=== PATIENT | male | born 1940 | race Caucasian/White ===

== ENCOUNTER → 2016-06-24 | Outpatient (CLI) | payer MEDICARE, OTHER ==
[2016-06-24 12:38] LABS: ASPARTATE AMINO TRANSFERASE 26 U/L (15-37); BLOOD UREA NITROGEN 16 mg/dL (7-18)
== END | disposition home or self-care (01) ==
LOC: LAB 08:46
PROVIDERS: ATTEND Internal Medicine Cardiovascular Disease
DX: E78.2 Mixed hyperlipidemia (principal)
CPT/HCPCS: 36415; 80053; 80061

== ENCOUNTER 2017-11-01 12:50 | Day surgery (SDC) | payer MEDICARE, OTHER ==
[~2017-11-01] VITALS: Ht 167.6 cm; Wt 77.3 kg
[~2017-11-01 12:50] MED LIST: ASPI-621 PO; LEVO125T5 PO; LIPITOR PO
[2017-11-01 13:12] VITALS: BP 114/76
[2017-11-01] MEDS ORDERED: LACTATED RINGERS 1,000 ML IV SCH (13:16)
[2017-11-01] MEDS ORDERED: FENTANYL PF 250 MCG/5ML ONE (14:45)
[2017-11-01] MEDS ORDERED: BUPIVACAINE/PF-EPI 0.5% 1:200K ONE (14:51)
[2017-11-01] MEDS ORDERED: PHENYLEPHRINE 10 MG/ML ONE (14:57)
[2017-11-01] MEDS ORDERED: ONDANSETRON 2MG/ML, 2ML IV PRN (16:00)
[2017-11-01] MEDS ORDERED: ONDANSETRON ODT 8 MG PO PRN (16:00)
[2017-11-01] MEDS ORDERED: OXYcodone 5 MG/5 ML ORAL.SOL UDC PO PRN (16:00)
[2017-11-01] MEDS ORDERED: PROMETHAZINE 25 MG/ML, 1ML IV PRN (16:00)
[2017-11-01] MEDS ORDERED: PROMETHAZINE 25 MG SUPP PR PRN (16:00)
[2017-11-01] MEDS ORDERED: ACETAMINOPHEN 325 MG TABLET PO PRN (16:00)
[2017-11-01] MEDS ORDERED: MEPERIDINE/PF 25MG/0.5ML IVPush PRN (16:00)
[2017-11-01] MEDS ORDERED: MORPHINE SULFATE 4 MG/ML, 1ML IVPush PRN (16:00)
[2017-11-01] MEDS ORDERED: SUCCINYLCHOLINE 20 MG/ML, 10ML ONE (16:16)
[2017-11-01] MEDS ORDERED: NEOSTIGMINE 1 MG/ML, 10ML ONE (16:16)
[2017-11-01] MEDS ORDERED: CEFAZOLIN 1,000 MG ONE (16:16)
[2017-11-01] MEDS ORDERED: ONDANSETRON 2MG/ML, 2ML ONE (16:16)
[2017-11-01] MEDS ORDERED: PROPOFOL 10 MG/ML, 20ML ONE (16:16)
[2017-11-01] MEDS ORDERED: GLYCOPYRROLATE 0.2MG/1ML, 5ML ONE (16:16)
[2017-11-01] MEDS ORDERED: DEXAMETHASONE 4 MG/ML, 1ML ONE (16:16)
[2017-11-01] MEDS ORDERED: ROCURONIUM 10MG/ML,5ML ONE (16:16)
[2017-11-01] MEDS ORDERED: ACETAMINOPHEN 650 MG/20.3 ML UDC ONE (16:27)
[2017-11-01] MEDS ORDERED: FENTANYL PF 100 MCG/2ML ONE (16:27)
[2017-11-01] MEDS ORDERED: OXYcodone 5 MG/5 ML ORAL.SOL UDC ONE (16:27)
[2017-11-01] MEDS: FENTANYL PF 100 MCG/2ML IV PRN ×2 (16:29→16:43)
== END 2017-11-01 18:40 | disposition home or self-care (01) ==
LOC: OUT 12:50
PROVIDERS: ATTEND Surgery
DX: K43.0 Incisional hernia with obstruction, without gangrene (principal); I10 Essential (primary) hypertension; E11.9 Type 2 diabetes mellitus without complications; E03.9 Hypothyroidism, unspecified; I25.10 Atherosclerotic heart disease of native coronary artery without angina pectoris; E78.00 Pure hypercholesterolemia, unspecified; Z79.82 Long term (current) use of aspirin; Z87.39 Personal history of other diseases of the musculoskeletal system and connective tissue; Z98.890 Other specified postprocedural states
CPT/HCPCS: 49655; 93005; C1781; J0330; J0690; J1100; J2405; J2704; J2710; J3010; J3490; J2370

== ENCOUNTER → 2017-11-25 | Outpatient (CLI) | payer MEDICARE, OTHER | END | disposition home or self-care (01) | LOC: CFH 11:34 | PROVIDERS: ATTEND Internal Medicine Cardiovascular Disease | DX: I25.10 Atherosclerotic heart disease of native coronary artery without angina pectoris (principal); I71.9 Aortic aneurysm of unspecified site, without rupture | CPT/HCPCS: 78452; 93017; A9502 ==

== ENCOUNTER → 2018-03-27 | Outpatient (CLI) | payer MEDICARE, OTHER ==
[~2018-03-27] MED LIST changes: -ASPI-621 PO; +ASPI81TA45 PO
[2018-03-27 12:45] LABS: ALANINE AMINOTRANSFERASE 38 U/L (12-78); ALBUMIN 3.5 g/dL (3.4-5.0); ANION GAP 4 mmol/L (5-15); CALCIUM 8.6 mg/dL (8.5-10.1); CHLORIDE 106 mmol/L (98-107); CREATININE 0.99 mg/dL (0.7-1.3)
[2018-03-27 12:47] LABS: ALKALINE PHOSPHATASE 76 U/L (45-117); BILIRUBIN,TOTAL 0.4 mg/dL (0.2-1.0); CHOL/HDL RATIO 2.1; CHOLESTEROL, TOTAL 126 mg/dL (140-239); HDL CHOL % 48 % (26-37); HDL CHOLESTEROL (DIRECT) 60 mg/dL (40-60); LDL CHOLESTEROL,CALCULATED 49 mg/dL (54-169); LDL/HDL RATIO 0.8 (0.5-3.0); TOTAL PROTEIN 6.6 g/dL (6.4-8.2); TRIGLYCERIDES 84 mg/dL (50-200); VLDL CHOLESTEROL 17 mg/dL (0-25)
== END | disposition home or self-care (01) ==
LOC: CFH 08:37
PROVIDERS: ATTEND Internal Medicine Cardiovascular Disease
DX: E78.2 Mixed hyperlipidemia (principal)
CPT/HCPCS: 36415; 80053; 80061